=== PATIENT | male | born 1960 | race Caucasian/White ===

== ENCOUNTER 2022-03-16 10:22 | Emergency (ER) | payer OTHER ==
[~2022-03-16] VITALS: Ht 177.8 cm; Wt 81.6 kg
[2022-03-16] MEDS ORDERED: LIPITOR20 MG PO (10:40)
[2022-03-16] MEDS ORDERED: COZAAR50 MG PO (10:40)
== END 2022-03-16 13:56 | disposition home or self-care (01) ==
LOC: ER 10:22
DX: U07.1 COVID-19 (principal); I10 Essential (primary) hypertension

== ENCOUNTER 2022-05-09 08:59 | Emergency (ER) | payer OTHER ==
[~2022-05-09] VITALS: Ht 180.3 cm; Wt 83.9 kg
[~2022-05-09 08:59] MED LIST: COZAAR50 MG PO; LIPITOR20 MG PO
[2022-05-09] MEDS ORDERED: KETO10TA2 PO (10:35)
== END 2022-05-09 10:57 | disposition home or self-care (01) ==
LOC: ER 08:59
DX: S90.32XA Contusion of left foot, initial encounter (principal); X58.XXXA Exposure to other specified factors, initial encounter; Y93.01 Activity, walking, marching and hiking; Y92.9 Unspecified place or not applicable; Y99.9 Unspecified external cause status

== ENCOUNTER 2022-09-13 14:07 | Emergency (ER) | payer OTHER ==
[~2022-09-13] VITALS: Ht 180.3 cm; Wt 81.6 kg
[~2022-09-13 14:07] MED LIST changes: +KETO10TA2 PO
== END 2022-09-13 17:57 | disposition home or self-care (01) ==
LOC: ER 14:07
DX: U07.1 COVID-19 (principal)

== ENCOUNTER 2024-09-05 07:59 | Emergency (ER) | payer OTHER ==
[~2024-09-05] VITALS: Ht 177.8 cm; Wt 77.1 kg
[2024-09-05] MEDS ORDERED: ACETAMINOPHEN 500 MG GEL..CAP PO ONE (09:00)
[2024-09-05] MEDS ORDERED: GUAIFENESIN/DEXTROMETHORPHAN 10ML BLIST.PACK PO STA (09:16)
[2024-09-05 09:33] LABS: HEMATOCRIT 39.7 % (39.0-48.0); HEMOGLOBIN 13.5 g/dL (13-16.00); MEAN CORPUSCULAR HEMOGLOBIN 31.8 pg (27.00-32.0); MEAN CORPUSCULAR HGB CONC 33.8 g/dl (32.0-36.0); PLATELET COUNT 197 K/uL (150-450); RED BLOOD COUNT 4.23 M/uL (4.00-6.00); RED CELL DISTRIBUTION WIDTH 14.5 % (11.5-14.5)
[2024-09-05] MEDS ORDERED: OSEL75CA PO (11:14)
[2024-09-05] MEDS ORDERED: BENZONATATE200 M1 PO (11:14)
[2024-09-05] MEDS ORDERED: ZYRTEC10 MG PO (11:14)
== END 2024-09-05 12:27 | disposition home or self-care (01) ==
LOC: ER 08:01
PROVIDERS: General Practice
DX: J10.1 Influenza due to other identified influenza virus with other respiratory manifestations (principal); Z20.822 Contact with and (suspected) exposure to COVID-19; I10 Essential (primary) hypertension